=== PATIENT | male | born 1980 | race Caucasian/White ===

== ENCOUNTER 2020-02-01 12:37 | Emergency (ER) | payer OTHER ==
[~2020-02-01] VITALS: Ht 167.6 cm; Wt 63.7 kg
[2020-02-01] MEDS ORDERED: KETOROLAC 30 MG/ML 1ML VIAL IV ONE (13:30)
[2020-02-01] MEDS ORDERED: NS 1,000 ML IV ONE (13:30)
[2020-02-01] MEDS ORDERED: PANTOPRAZOLE 40MG VIAL (C9113 PER 1) IV ONE (13:30)
[2020-02-01] MEDS ORDERED: ONDANSETRON 4MG/2ML VIAL IV ONE (13:30)
[2020-02-01 14:33] LABS: BASO # 0.1 10^3/uL (0.0-0.2); BASO % 0.8 % (0.0-1.0); EOS % 0.3 % (0.0-3.0); HEMATOCRIT 54.8 % (42.0-52.0); LYMPH # 1.5 10^3/uL (1.5-5.0); LYMPH % 13.7 % (24.0-44.0); MEAN CORPUSCULAR HEMOGLOBIN 30.6 pg (27.0-33.0); MEAN CORPUSCULAR HGB CONC 32.8 g/dl (32.0-36.5); MONO # 0.7 10^3/uL (0.0-0.8); MONO % 6.5 % (0.0-5.0); NEUTROPHILS # 8.5 10^3/uL (1.5-8.5); NEUTROPHILS % 77.9 % (36.0-66.0); PLATELET COUNT, AUTOMATED 272 10^3/uL (150-450); RED BLOOD COUNT 5.89 10^6/uL (4.30-6.10)
[2020-02-01 15:06] LABS: ALBUMIN 4.3 GM/DL (3.2-5.2); ALT/SGPT 29 U/L (12-78); BILIRUBIN,DIRECT 0.2 MG/DL (0.0-0.2); BILIRUBIN,TOTAL 0.7 MG/DL (0.2-1.0); BLOOD UREA NITROGEN 9 MG/DL (7-18); CALCIUM LEVEL 9.9 MG/DL (8.5-10.1); CARBON DIOXIDE LEVEL 30 MEQ/L (21-32); CHLORIDE LEVEL 99 MEQ/L (98-107); CK-MB VALUE MASS < 1.0 NG/ML (<3.6); CPK CREATINE PHOSPHOKINASE 63 U/L (39-308); CREATININE FOR GFR 1.38 MG/DL (0.70-1.30); GLOMERULAR FILTRATION RATE > 60.0 (>60); GLUCOSE, FASTING 97 MG/DL (70-100); LIPASE 94 U/L (73-393); MB/CK RELATIVE INDEX 1.59 (< OR =4); POTASSIUM SERUM 4.9 MEQ/L (3.5-5.1); SODIUM LEVEL 137 MEQ/L (136-145); TOTAL PROTEIN 8.6 GM/DL (6.4-8.2); TROPONIN I < 0.02 NG/ML (< 0.10)
[2020-02-01] MEDS ORDERED: NS 1,910 ML in IV 1 EA IV ONE (15:15)
[2020-02-01] MEDS ORDERED: ISOVUE-370 76% 100ML VIAL As Ordered ONE (16:33)
--- NOTE | 2020-02-01 17:21 | REPVR ---
PROCEDURE INFORMATION: Exam: CT Abdomen And Pelvis With Contrast Exam date and time: 02/01/2020 5:04 PM Age: 39 years old Clinical indication: Abdominal pain; Epigastric; Additional info: Epigastric/ruq pain TECHNIQUE: Imaging protocol: Computed tomography of the abdomen and pelvis with intravenous contrast. Radiation optimization: All CT scans at this facility use at least one of these dose optimization techniques: automated exposure control; mA and/or kV adjustment per patient size (includes targeted exams where dose is matched to clinical indication); or iterative reconstruction. Contrast material: ISOVUE 370; Contrast volume: 100 ml; Contrast route: INTRAVENOUS (IV); COMPARISON: No relevant prior studies available. FINDINGS: Lungs: Minimal linear atelectasis and/or scar in the lung bases. Liver: Unremarkable. No mass. Gallbladder and bile ducts: Unremarkable. No calcified stones. No ductal dilation. Pancreas: Unremarkable. No ductal dilation. Spleen: Unremarkable. No splenomegaly. Adrenals: Normal. No mass. Kidneys and ureters: Unremarkable. No stones. No hydronephrosis. Stomach and bowel: Mild wall thickening of the sigmoid colon is likely secondary to colonic spasm. Mild colitis is not excluded. The remainder of the colon is unremarkable. The stomach and small bowel have normal appearances. No bowel obstruction. Appendix: No evidence of appendicitis. Intraperitoneal space: Unremarkable. No free air. No significant fluid collection. Vasculature: Unremarkable. No abdominal aortic aneurysm. Lymph nodes: Unremarkable. No enlarged lymph nodes. Urinary bladder: Mild wall thickening of the urinary bladder is likely secondary to under distention. Cystitis is not excluded. Reproductive: Unremarkable as visualized. Bones/joints: No acute fracture. Soft tissues: Unremarkable. IMPRESSION: 1. Minimal linear atelectasis and/or scar in the lung bases. 2. Mild wall thickening of the urinary bladder is likely secondary to under distention. Cystitis is not excluded. 3. Mild wall thickening of the sigmoid colon is likely secondary to colonic spasm. Mild colitis is not excluded. Electronically signed by: Kp Mendoza On 02/01/2020 17:20:39 PM
[2020-02-01] MEDS ORDERED: ONDA4TAB6 PO (19:01)
[2020-02-01 19:30] VITALS: BP 133/82
--- NOTE | 2020-02-01 20:53 | ECGEPIP ---
[facility] - ED Test Date: 2020-02-01 Pat Name: VLADIMIR GRIJALVA Department: Room: - Gender: Male L[employer]: bonita : 1980 Requested By: SAI REES PA-C Order Number: [id number] Reading MD: Annalise German Measurements Intervals [place] Rate: 92 P: 0 UT: 131 QRS: 54 QRSD: 82 T: 59 QT: 321 QTc: 398 Interpretive Statements SINUS RHYTHM INTERPRETATION BASED ON A DEFAULT AGE OF 40 YEARS NO PRIOR Electronically Signed on 02-01-2020 20:52:43 EDT by Annalise German
== END 2020-02-01 19:32 | disposition home or self-care (01) ==
LOC: M ED 12:37
DX: K52.9 Noninfective gastroenteritis and colitis, unspecified (principal); N17.9 Acute kidney failure, unspecified; R05 Cough; R06.02 Shortness of breath; F17.200 Nicotine dependence, unspecified, uncomplicated
CPT/HCPCS: 74177; 80047; 80048; 80076; 81001; 82550; 82553; 83605; 83690; 84484; 85025; 87040; 93005; 96361; 96374; 96375; 99284; C9113; J1885; J2405; Q9967; U0003

== ENCOUNTER 2021-06-03 22:19 | Inpatient (IN) | payer OTHER ==
[~2021-06-03 22:19] MED LIST: ONDA4TAB6 PO
[2021-06-03 23:02] LABS: HEMATOCRIT 48.1 % (42.0-52.0); MEAN CORPUSCULAR HEMOGLOBIN 31.1 pg (27.0-33.0); MEAN CORPUSCULAR HGB CONC 33.3 g/dl (32.0-36.5); MEAN CORPUSCULAR VOLUME 93.4 fl (80.0-96.0); PLATELET COUNT, AUTOMATED 236 10^3/uL (150-450); RED BLOOD COUNT 5.15 10^6/uL (4.30-6.10); WHITE BLOOD COUNT 9.1 10^3/uL (4.0-10.0)
[2021-06-03 23:29] LABS: AMPHETAMINES LEVEL URINE NEGATIVE (NEGATIVE); BARBITURATES URINE NEGATIVE (NEGATIVE); BENZODIAZEPINES URINE NEGATIVE (NEGATIVE); CANNABINOIDS URINE NEGATIVE (NEGATIVE); COCAINE METABOLITE URINE NEGATIVE (NEGATIVE); METHADONE URINE NEGATIVE (NEGATIVE); OPIATES URINE NEGATIVE (NEGATIVE); PHENCYCLIDINE URINE NEGATIVE (NEGATIVE)
[2021-06-03 23:34] LABS: ACETAMINOPHEN LEVEL < 2.0 UG/ML (10.0-30.0); ALBUMIN 4.1 GM/DL (3.2-5.2); ALT/SGPT 26 U/L (12-78); BILIRUBIN,DIRECT 0.1 MG/DL (0.0-0.2); BILIRUBIN,TOTAL 0.2 MG/DL (0.2-1.0); BLOOD UREA NITROGEN 16 MG/DL (7-18); CALCIUM LEVEL 9.2 MG/DL (8.5-10.1); CARBON DIOXIDE LEVEL 27 MEQ/L (21-32); CHLORIDE LEVEL 106 MEQ/L (98-107); CREATININE FOR GFR 1.32 MG/DL (0.70-1.30); ETHYL ALCOHOL (ETHANOL) 0.284 % (0.000-0.010); GLOMERULAR FILTRATION RATE > 60.0 (>60); GLUCOSE, FASTING 132 MG/DL (70-100); POTASSIUM SERUM 4.2 MEQ/L (3.5-5.1); SALICYLATE LEVEL 2.6 MG/DL (5.0-30.0); SODIUM LEVEL 142 MEQ/L (136-145); TOTAL PROTEIN 7.8 GM/DL (6.4-8.2)
[2021-06-03] MEDS ORDERED: LORazepam 2 MG TAB PO PRN (23:50)
[2021-06-03] MEDS: THIAMINE 100 MG TAB PO SCH (23:58)
[2021-06-04] MEDS ORDERED: FOLIC ACID 1 MG TAB PO SCH (09:00)
[2021-06-04] MEDS ORDERED: MULTIVITAMINS/MINERALS THERAP 1 TAB PO SCH (09:00)
[2021-06-04] MEDS: THIAMINE 100 MG TAB PO SCH ×2 (10:34→21:00)
[2021-06-04] MEDS ORDERED: traZODone 50 MG TAB PO PRN (14:25)
[2021-06-04] MEDS ORDERED: MAALOX 30 ML SUSP *UDC PO PRN (14:25)
[2021-06-04] MEDS ORDERED: MOM 30ML SUSPENSION UDC PO PRN (14:25)
[2021-06-04] MEDS ORDERED: LORazepam 2 MG TAB PO PRN (14:25)
[2021-06-04] MEDS ORDERED: ACETAMINOPHEN TAB 650MG DOSE (2X325MG) PO PRN (14:25)
[2021-06-04] MEDS ORDERED: HOME MED LIST COMPLETE! XX SCH (14:40)
[2021-06-04 17:38] VITALS: BP 128/96
[2021-06-05 06:03] VITALS: BP 113/62
[2021-06-05] MEDS: MULTIVITAMINS/MINERALS THERAP 1 TAB PO SCH (09:50)
[2021-06-05] MEDS: FOLIC ACID 1 MG TAB PO SCH (09:50)
[2021-06-05] MEDS: THIAMINE 100 MG TAB PO SCH ×2 (09:50→21:13)
[2021-06-05] MEDS: NALTREXONE 50 MG TAB PO SCH (13:58)
[2021-06-05] MEDS ORDERED: NICOTINE 21MG/24HR 1 EA TRANSDERMAL TD PRN (14:15)
[2021-06-05 16:17] VITALS: BP 136/90
[2021-06-06 06:37] VITALS: BP 118/70
[2021-06-06 06:56] VITALS: BP 118/70
[2021-06-06] MEDS ORDERED: NICO21PAT TD ×2 (09:28→12:45)
[2021-06-06] MEDS ORDERED: NALT50TA4 PO ×2 (09:28→12:45)
[2021-06-06] MEDS: FOLIC ACID 1 MG TAB PO SCH (09:32)
[2021-06-06] MEDS: THIAMINE 100 MG TAB PO SCH (09:32)
[2021-06-06] MEDS: NALTREXONE 50 MG TAB PO SCH (09:32)
[2021-06-06] MEDS: MULTIVITAMINS/MINERALS THERAP 1 TAB PO SCH (09:33)
== END 2021-06-06 13:15 | disposition home or self-care (01) | DRG 898 ==
LOC: M ED 22:19 → M ED INP 06-04 14:22 → M PSY 06-04 18:03
PROVIDERS: ADMIT Student in an Organized Health Care Education/Training Program; ATTEND Student in an Organized Health Care Education/Training Program
DX: F10.24 Alcohol dependence with alcohol-induced mood disorder (principal); F17.210 Nicotine dependence, cigarettes, uncomplicated; F43.20 Adjustment disorder, unspecified